=== PATIENT | male | born 1965 | race Caucasian/White ===

== ENCOUNTER 2025-04-03 13:32 | Emergency (ER) | payer BC, SELFPAY ==
[2025-04-03 13:34] VITALS: BP 147/88
[2025-04-03 13:49] LABS: Urine Character Slightly Cloudy (Clear)
[2025-04-03 14:25] LABS: Urine Squamous Cell >30 /LPF (Few); Urine White Cell 0-2 /HPF (0-5)
--- NOTE | 2025-04-03 15:13 | ED.GENMED ---
History of Present Illness
General
Chief Complaint: Flank Pain
Time Seen by Provider: 04/03/25 13:46
History of Present Illness
History of Present Illness:
59-year-old male presents to the emergency department for evaluation of left flank pain. He was seen by his urologist 3 weeks ago and noted to have microscopic hematuria thus was placed on antibiotics, completed the antibiotic approximate 2 weeks
ago and this did not resolve symptoms. Flank pain seems to wax and wane without obvious cause although occasionally worse with twisting or bending. No radiation of pain to the legs. Denies any lower urinary tract voiding symptoms
Past History
Past History
ED Past Medical History: None
ED Past Surgical History: None
Social History
Alcohol: None
Personal:
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
Review of Systems
Review of Systems
Allergies reviewed?: Yes
All Other Systems: ROS reviewed and negative except as documented in HPI and ROS
Phy Exam
Physical Exam
Physical Exam:
GEN: Well appearing, NAD, WDWN
HEENT: Oral mucosa moist, no scleral icterus
Cardiac: Regular rate
Lung: No respiratory distress, no tachypnea
MSK: No gross deformity or injuries. Focal tenderness to the left paraspinous lumbar musculature
Skin: Good color, no pallor or jaundice, no rashes
Neuro: AO x3, moves all extremities freely
Psych: Calm, cooperative
Course
Orders/Labs/Results
Orders:
Orders
04/03/25 13:40
Urinalysis Reflex To Culture Urgent
Date Specimen was Collected: 04/03/25
Time Specimen was Collected: 13:38
Urine Microscopic Reflex Cult Urgent
Urine Culture Urgent
KRIS Source: U
Specimen Description:
Date Specimen was Collected: 04/03/25
Time Specimen was Collected: 13:38
04/03/25 13:59
CT Abd/pel Without Iv Or Oral Urgent
Comment:
Reason For Exam: L flank pain/hematuria
Abnormal Lab Results
04/03/25
13:40
Ur Occult Blood Reflex 3+ A
(Negative)
Leukocyte Esterase Rfl 1+ A
(Negative)
Urine RBC 3-6 A /HPF
(0-2)
Urine Bacteria (Reflex) Few A
(Negative)
Urine Albumin (Reflex) 1+ A
(Neg - Trace)
Vital Signs
Initial and Last Documented VS:
Initial Vital Signs
Temp Pulse Resp BP Pulse Ox
98 F 70 16 147/88 98
04/03/25 13:34 04/03/25 13:34 04/03/25 13:34 04/03/25 13:34 04/03/25 13:34
Last Documented Vital Signs
Temp Pulse Resp BP Pulse Ox
98 F 70 16 147/88 98
04/03/25 13:34 04/03/25 13:34 04/03/25 13:34 04/03/25 13:34 04/03/25 15:15
MDM/Problems Addressed
MDM/Problems Addressed:
Urinalysis does show trace blood however CT with no appreciable abnormalities. Pain is reproduced on exam thus suggesting musculoskeletal etiology. Supportive care discussed
*Pulse Oximetry
SaO2: 98
Oxygen Mode of Delivery: Room air
Patient hypoxic: no
*Critical Care Note
Total Time (30-74mins, 75-104mins- exclusive of procedures): Not Applicable
ED Attending Note
-
Portions of this chart may have been created with voice recognition software.� Occasional wrong word or��sound alike� substitutions may have occurred due to the inherent limitations of voice recognition software.
Discharge Plan
Departure
Patient Disposition: Home (Routine Discharge)
Date of Disposition: 04/03/25
Time of Disposition: 15:14
Patient with high blood pressure during this ER visit?: No
Discharge Problem:
Low back pain
Instructions: Back exercises, Low back pain - ED discharge instructions
Prescriptions:
New
diclofenac sodium 75 mg tablet,delayed release (DR/EC)
75 mg PO BID Qty: 14 0RF
No Action
oxycodone-acetaminophen 1 TABLET tablet
1 tab PO Q4HPRN PRN (Reason: pain)
ibuprofen 600 MG tablet
600 mg PO Q6HPRN PRN (Reason: pain)
Food Enzymes
1 cap PO DAILY
hydrocodone-acetaminophen 1 TABLET tablet
1 tab PO Q4HPRN PRN (Reason: pain) Qty: 10 0RF
indomethacin 50 MG capsule
50 mg PO TID Qty: 10 0RF
Rx Instructions:
take with food
prednisone 20 MG tablet
20 mg PO DAILY Qty: 7 0RF
oxycodone-acetaminophen 5 MG/325 MG tablet
1 tab PO Q4HPRN PRN (Reason: pain) Qty: 15 0RF
cephalexin 500 MG capsule
500 mg PO QID Qty: 20 0RF
ondansetron 4 MG tablet,disintegrating
4 mg PO TIDPRN PRN (Reason: nausea) Qty: 14 0RF
Referrals:
Mikey Powers MD [Family Provider, Family Practice]
Interventions
Interventions:
*Risk Screen - Suicide Last Done: 04/03/25 13:34
*Neglect/Abuse Screening Last Done: 04/03/25 13:34
*Nursing Disposition Last Done: 04/03/25 15:23
UI-Lublxc-Rzxovavkdl Assessment Last Done: 04/03/25 15:19
ED-Male Genitourinary Assessment Last Done: 04/03/25 15:19
Discharge Date and Time
Discharge Date/Time: 04/03/25 15:24
Print Language: SWEDISH
== END 2025-04-03 15:24 | disposition home or self-care (01) ==
LOC: EMR 13:32
PROVIDERS: Student in an Organized Health Care Education/Training Program; EMERGENCY PHYSICIAN Emergency Medicine; FAMILY PHYSICIAN Family Medicine
DX: M54.50 Low back pain, unspecified (principal)
CPT/HCPCS: 99284; 74176; 81003; 81015; 87086